=== PATIENT | female | born 1985 | race African-American/Black ===

== ENCOUNTER 2021-06-06 08:20 | Emergency (ER) | payer OTHER, SELFPAY ==
[2021-06-06 08:28] VITALS: BP 151/90; PULSE 76; RESP 20; TEMP 36.9; O2SAT 100
--- NOTE | 2021-06-06 08:37 | ED.URI ---
HPI - URI/Sore Throat General Chief Complaint: Upper Respiratory Infection Stated Complaint: Sore throat cough Time Seen by Provider: 06/06/21 08:37 Source: patient and RN notes reviewed Mode of arrival: ambulatory Limitations: no limitations History of Present Illness HPI Narrative: Rolo 35-year-old female patient who ambulated into the [facility]. She has a 2-day history of sore throat, cough,. Patient states she feels like the cough is from her clearing the secretions from her throat. Patient has been drinking tea with honey. She does not have a history of strep throat. She had Covid in August. MD elicited complaint: sore throat Related Data Home Medications Medication Instructions Recorded Confirmed No Home Medications 06/06/21 06/06/21 Allergies Allergy/AdvReac Type Severity Reaction Status Date / Time No Known Allergies Allergy Verified 06/06/21 08:45 Review of Systems Review of Systems: CONSTITUTIONAL: Denies body aches, fever, chills, or sweats. EYES: Denies visual changes, redness, or discharge. ENT: Denies rhinorrhea, congestion,+ sore throat, denies otalgia. CARDIOVASCULAR: Denies chest pain, palpitations, or edema. RESPIRATORY: Denies cough or dyspnea. GASTROINTESTINAL: Denies abdominal pain, nausea, vomiting, or diarrhea. GENITOURINARY: Denies dysuria or hematuria. SKIN: Denies rash, itching, or wounds. MUSCULOSKELETAL: Denies back pain, joint pain, or myalgia. NEUROLOGIC: Denies headache, numbness, tingling, or weakness. PSYCH: Denies depression or anxiety. All systems reviewed & are unremarkable except as noted in HPI and below PMFSH Comments At time of signature, I have reviewed and agree with nursing past medical, surgical, social and family history unless otherwise noted. Please see nursing chart for further information. There is no relevant family history pertinent to the presenting complaint Exam Narrative: GENERAL: Well-appearing, well-nourished, and in no acute distress. HEAD: Normocephalic, atraumatic. EYES: EOMI. No redness or drainage. Conjunctivae normal. ENT: Mucous membranes pink and moist. Nares clear. No rhinorrhea. TMs normal bilaterally. Posterior pharynx is erythemic with mild edema, no exudate noted. Uvula midline. NECK: Normal AROM. Supple. Left anterior cervical lymphadenopathy. CHEST: No respiratory distress. Clear to auscultation. MUSCULOSKELETAL: No bony tenderness. EXTREMITIES: Normal range of motion. No edema. SKIN: Warm, dry, no rash. Capillary refill normal. Normal skin turgor. NEURO: No focal deficits. Alert and oriented x3. Gait steady. PSYCH: Normal affect. No signs of depression or anxiety. Course Course Emergency Course: Rapid strep was obtained. Throat culture will be sent to lab. Patient will be treated as a viral pharyngitis we will continue Motrin Tylenol [id number] Chloraseptic lozenges. Follow-up with your primary care physician in 3 to 5 days Vital Signs Vital signs: Reviewed. Pt has been instructed to follow up with her PCP regarding her elevated blood pressure today. MDM - URI/Sore Throat MDM Narrative Medical decision making narrative: Patient's rapid strep is negative. Throat culture will be sent to lab. Patient will be treated as a viral pharyngitis and she will be contacted after results of strep culture is back. Differential Diagnosis Differential diagnosis: Likely upper respiratory infection, otitis media, sinusitis and pharyngitis Medical Records Attestation: I reviewed the patient's medical records. Lab Data Attestation: I reviewed the patient's lab results. Critical Care Time Critical Care Time Critical Care Time: No Discharge Plan Discharge Clinical Impression: Pharyngitis Qualifiers: Pharyngitis/tonsillitis etiology: unspecified etiology Qualified Code(s): J02.9 - Acute pharyngitis, unspecified Patient Disposition: Home, Self-Care Condition: Stable Instructions: Antibiotic Form, Pharyng
[2021-06-06 08:46] VITALS: BP 151/90; PULSE 76; RESP 20; TEMP 36.9; O2SAT 100
== END 2021-06-06 08:50 | disposition home or self-care (01) ==
PROVIDERS: Emergency Provider Nurse Practitioner Family
DX: J02.9 Acute pharyngitis, unspecified (principal)
CPT/HCPCS: 87081; 87880; 99213; G0463

== ENCOUNTER 2022-09-30 08:43 | Emergency (ER) | payer OTHER, SELFPAY ==
[2022-09-30 08:53] VITALS: BP 139/86; PULSE 84; RESP 16; TEMP 36.2; O2SAT 98
--- NOTE | 2022-09-30 09:37 | ED.GENADULT ---
HPI - General Adult General Chief complaint: Upper Respiratory Infection Stated complaint: Sore Throat/Sinus Pain Source: patient Mode of arrival: ambulatory Limitations: no limitations History of Present Illness HPI narrative: PATIENT PRESENTS FOR EVALUATION OF SICK SYMPTOMS SINCE YESTERDAY. SYMPTOMS INCLUDE SINUS CONGESTION, FRONTAL HEADACHE, SORE THROAT, CHILLS AND NAUSEA. NO FEVER, VOMITING, ABDOMINAL PAIN, DIARRHEA, SHORTNESS OF BREATH. SHE DOES NOT SMOKE. NO RECENT SICK CONTACTS TO HER KNOWLEDGE. NO UNDERLYING MEDICAL PROBLEMS. Related Data Home Medications Medication Instructions Recorded Confirmed meloxicam 15 mg tablet 15 mg PO DAILY 09/30/22 09/30/22 pantoprazole 40 mg tablet,delayed 40 mg PO DAILY 09/30/22 09/30/22 release Allergies Allergy/AdvReac Type Severity Reaction Status Date / Time No Known Allergies Allergy Verified 06/06/21 08:45 Review of Systems Review of Systems: CONSTITUTIONAL: REPORTS CHILLS. DENIES FEVER, OR SWEATS. EYES: DENIES VISUAL CHANGES, REDNESS, OR DISCHARGE. ENT: REPORTS SINUS CONGESTION AND SORE THROAT. DENIES OTALGIA CARDIOVASCULAR: DENIES CHEST PAIN, PALPITATIONS, OR EDEMA. RESPIRATORY: DENIES COUGH OR DYSPNEA. GASTROINTESTINAL: DENIES ABDOMINAL PAIN, NAUSEA, VOMITING, OR DIARRHEA. GENITOURINARY: DENIES DYSURIA OR HEMATURIA. SKIN: DENIES RASH OR ITCHING. MUSCULOSKELETAL: DENIES BACK PAIN, JOINT PAIN, OR MYALGIA. NEUROLOGIC:REPORTS HEADACHE. DENIES NUMBNESS, DIZZINESS, OR WEAKNESS. PSYCHIATRIC: DENIES ANXIETY OR DEPRESSION. PMFSH Past Medical History Medical History No pertinent past medical history Surgical History Surgical History No pertinent past surgical history Family History Family History Mother Family history non-contributory Social History Social History Smoking status: Never smoker Substance use: never Living arrangements: with family Gender identity (if verbalized by the patient): Female Spiritual care concerns: No Exam Narrative: GENERAL: WELL-APPEARING, WELL-NOURISHED, AND IN NO ACUTE DISTRESS. HEAD: NORMOCEPHALIC, ATRAUMATIC. EYES: PERRLA AND EOMI. ENT: NARES CLEAR, NO RHINORRHEA OR EPISTAXIS. MUCOUS MEMBRANES MOIST. 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 BILATERAL TMS PEARLY LANGLEY NONBULGING NECK: SUPPLE. NO ADENOPATHY OR MASSES. NO CAROTID BRUITS OR JVD CHEST: CLEAR TO AUSCULTATION. NO RESPIRATORY DISTRESS. NO WHEEZES RALES OR RHONCHI HEART: REGULAR RATE AND RHYTHM. NO MURMUR HEARD. NORMAL PERIPHERAL PULSES. ABDOMEN: SOFT, NONTENDER, NONDISTENDED, NORMAL ACTIVE BOWEL SOUNDS. EXTREMITIES: NORMAL RANGE OF MOTION. NO EDEMA. SKIN: WARM, DRY, NO RASH. NEURO: NO FOCAL DEFICITS. ALERT AND ORIENTED X3. PSYCH: NORMAL MOOD AND AFFECT. Course Course Emergency Course: THIS IS A 36-YEAR-OLD FEMALE WHO PRESENTED FOR EVALUATION OF SICK SYMPTOMS. STREP NEGATIVE. NO FEVER OR MUCOPURULENT DISCHARGE TO SUGGEST ABRS. LIKELY VIRAL INFECTION. INCREASE HYDRATION. FLONASE, SUDAFED AND CEPACOL LOZENGES FOR SYMPTOM MANAGEMENT. FOLLOW UP WITH PRIMARY PROVIDER. GO TO THE ER FOR WORSENING SYMPTOMS. PATIENT IN AGREEMENT WITH PLAN CARE Level of Care: Express Care Visit Vital Signs Vital signs: Vital Signs Temperature 36.2 C L 09/30/22 08:53 Pulse Rate 84 09/30/22 08:53 Respiratory Rate 16 09/30/22 08:53 Blood Pressure 139/86 09/30/22 08:53 Pulse Oximetry 98 09/30/22 08:53 Oxygen Delivery Room Air 09/30/22 08:53 Temperature 36.2 C L 09/30/22 08:53 Pulse Rate 84 09/30/22 08:53 Respiratory Rate 16 09/30/22 08:53 Blood Pressure 139/86 09/30/22 08:53 Pulse Oximetry 98 09/30/22 08:53 Oxygen Delivery Room Air 09/30/22 08:53 Med
== END 2022-09-30 09:42 | disposition home or self-care (01) ==
PROVIDERS: Emergency Provider Nurse Practitioner; PCP Nurse Practitioner Family
DX: B34.9 Viral infection, unspecified (principal)
CPT/HCPCS: 87081; 87880; 99213; G0463